=== PATIENT | female | born 1980 | race Asian ===

== ENCOUNTER 2016-05-19 10:48 | Emergency (ER) | payer SELFPAY ==
[~2016-05-19] VITALS: Ht 165.1 cm; Wt 84.0 kg
[2016-05-19] MEDS ORDERED: SODIUM CHLORIDE 0.9% 1,000ML IVBOLUS ONE ×2 (11:30→12:30)
[2016-05-19 11:45] LABS: HEMOGLOBIN 11.3 g/dL (11.7-16.4)
[2016-05-19 11:56] LABS: BLOOD UREA NITROGEN 6 mg/dL (7-18)
[2016-05-19] MEDS ORDERED: PLEASE ENTER ALLERGIES MC SCH ×2 (12:30)
[2016-05-19 15:10] VITALS: BP 110/68
== END 2016-05-19 15:32 | disposition home or self-care (01) ==
LOC: ED 13:08
DX: O26.892 Other specified pregnancy related conditions, second trimester (principal); R55 Syncope and collapse; Z3A.25 25 weeks gestation of pregnancy; S00.83XA Contusion of other part of head, initial encounter; S60.222A Contusion of left hand, initial encounter; X58.XXXA Exposure to other specified factors, initial encounter; Y93.89 Activity, other specified; Y92.89 Other specified places as the place of occurrence of the external cause; Y99.9 Unspecified external cause status
CPT/HCPCS: 36415; 70450; 70486; 71010; 73130; 76805; 80048; 82040; 84702; 84703; 85025; 86850; 86900; 93005; 96360; 96361; 99285; J7030